=== PATIENT | female | born 1970 | race American Indian/Alaskan Native ===

== ENCOUNTER 2016-07-28 14:15 | Outpatient (CLI) | payer OTHER ==
--- NOTE | 2016-08-01 09:06 | Mammography Report ---
Bilateral mammogram: The patient presents with a history of a recently palpable left breast mass. A marker is placed over the area of concern and routine views are obtained. Comparison is made to her prior study in March 2014. There is an oval circumscribed mass in the lateral breast measuring 4.9 cm which is consistent with the marker location. This mass was not present on her prior study. In the inferior right breast there is a small nodular density with questionable correlation in the CC projection. The remainder the breast pattern is heterogeneously dense and otherwise unremarkable bilaterally. CAD used. Impression: Bilateral breast asymmetries. Recommendation: Additional compression imaging of the right breast. Bilateral breast ultrasound with additional compression imaging of the left breast if this is not a simple cyst. The patient has been scheduled to return for her ultrasound examination. BI-RADS CATEGORY: 0 = Needs additional imaging evaluation ACR BI-RADS MAMMOGRAPHIC CODES: 0 = Needs additional imaging evaluation; 1 = Negative; 2 = Benign; 3 = Probably benign; 4 = Suspicious; 5 = Malignant; 6 = Known biopsy-proven malignancy COMMENT: 1. Dense breast tissue, i.e., adenosis, fibrocystic changes, etc., may obscure an underlying neoplasm. 2. Approximately 10% of cancers are not detected with mammography. 3. A negative mammography report should not delay biopsy if a clinically suspicious mass is present. An
== END 2016-07-28 14:16 | disposition home or self-care (01) ==
LOC: SPVWC 14:15
PROVIDERS: ATTEND Family Medicine
DX: N63 Unspecified lump in breast (principal); N64.89 Other specified disorders of breast
CPT/HCPCS: 77066; G0204

== ENCOUNTER 2016-08-04 15:11 | Outpatient (CLI) | payer OTHER ==
--- NOTE | 2016-08-05 09:01 | Ultrasound Report ---
RIGHT DIGITAL DIAGNOSTIC MAMMOGRAM and BILATERAL BREAST ULTRASOUND: 08/04/16 15:11:00 CLINICAL: Recalled for a right asymmetry and further evaluation of a left mass. COMPARISON:07/28/16 FINDINGS: Right ML and spot compression MLO and CC views were performed area an irregular circumscribed asymmetry persists on the spot CC view and on the lateral view. Ultrasound of the right breast (including all four quadrants and the retroareolar area) was performed. A lobular shape hypoechoic mass versus lymph node at 7 o'clock 4 cm from the nipple correlates with the mammographic density. There is suggestion of a central fatty hilum and measures 1.3 x 0.8 x 0.7 cm. A similar solid hypoechoic irregular mass versus lymph node at 11 o'clock 10 cm from the nipple measures 1.3 x 0.6 x 1.2 cm. A cyst at 10 o'clock 8 cm from the nipple measures 5 x 3 x 5 mm and a cyst versus solid nodule at 10 o'clock 8 cm from the nipple measures 5 x 5 x 4 mm. A benign cyst at 1 o'clock 47 m from the nipple measures 9 x 4 x 6 mm. Ultrasound of the left breast demonstrated an oval heterogeneous solid predominantly isoechoic mass at 4 o'clock 14 cm from the nipple. It measures 3.5 x 1.4 x 3.0 cm and corresponds to the mammographic mass. It has a mild lobular margin. IMPRESSION: A solid 3.5 cm left breast mass at 4 o'clock 14 cm is from the nipple and multiple probably benign solid right breast masses versus lymph nodes. BI-RADS CATEGORY: 4--Suspicious RECOMMENDATION: Ultrasound guided needle core biopsy of the left breast mass and six-month followup right breast ultrasound to reevaluate the lesions at 7 o'clock 4 cm from the nipple, 11 o'clock 10 cm from the nipple and at 10 o'clock 8 cm from the nipple. I discussed the findings and the recommendation for needle core biopsy of the left breast and six-month followup of the right breast with the patient at the time of the examination. ACR BI-RADS MAMMOGRAPHIC CODES: 0 = Needs additional imaging evaluation; 1 = Negative; 2 = Benign; 3 = Probably benign; 4 = Suspicious; 5 = Malignant; 6 = Known biopsy-proven malignancy COMMENT: 1. Dense breast tissue, i.e., adenosis, fibrocystic changes, etc., may obscure an underlying neoplasm. 2. Approximately 10% of cancers are not detected with mammography. 3. A negative mammography report should not delay biopsy if a clinically suspicious mass is present. COMMENT: Patient follow-up letters are generated via our [employer] application.
== END 2016-08-04 15:12 | disposition home or self-care (01) ==
LOC: SPVWC 15:11
PROVIDERS: ATTEND Family Medicine
DX: N60.01 Solitary cyst of right breast (principal); N63 Unspecified lump in breast; N64.89 Other specified disorders of breast
CPT/HCPCS: 76641; 76642; G0206